=== PATIENT | female | born 1945 | race Caucasian/White ===

== ENCOUNTER 2017-04-14 09:18 | Inpatient (IN) | payer OTHER ==
--- NOTE | 2017-04-14 08:16 | CPEKG ---
Heart Rate: 59 RR Interval: 1017 P-R Interval: 152 QRSD Interval: 80 QT Interval: 432 QTC Interval: 428 P [place]: 79 QRS [place]: -45 T Wave [place]: 8 EKG Severity - ABNORMAL ECG - EKG Impression: SINUS RHYTHM EKG Impression: LEFT ANTERIOR FASCICULAR BLOCK EKG Impression: BORDERLINE R WAVE PROGRESSION, ANTERIOR LEADS Electronically Signed By: Lars Walker 14-Apr-2017 15:40:15
[2017-04-14 08:34] LABS: % IMMATURE GRANULYOCYTES 0.7 % (0.0-1.1); ABSOLUTE IMMATURE GRANULOCYTES 0.03 10^3/uL (0.00-0.10); ADD DIFF? NO; ADD MORPH? NO; ADD SCAN? NO; ATYPICAL LYMPHOCYTE FLAG 10 (0-99); FRAGMENT RBC FLAG 0 (0-99); HEMATOCRIT 40.7 % (38.0-47.0); HEMOGLOBIN 14.1 g/dL (12.6-16.3); LEFT SHIFT FLG 0 (0-99); LIPEMIA HEMOLYSIS FLAG 90 (0-99); MEAN CELL HEMOGLOBIN 30.3 pg (27.9-34.1); MEAN CELL HEMOGLOBIN CONCENTR. 34.6 g/dL (32.4-36.7); MEAN CELL VOLUME 87.3 fL (81.5-99.8); MEAN PLATELET VOLUME 9.9 fL (8.7-11.7); PLATELET CLUMPS FLAG 0 (0-99); PLATELET COUNT 210 10^3/uL (150-400); RED BLOOD CELL COUNT 4.66 10^6/uL (4.18-5.33); RED CELL DISTRIBUTION WIDTH 13.1 % (11.5-15.2)
[2017-04-14 08:45] LABS: INR 1.11 (0.83-1.16); PROTIME(PATIENT) 14.2 SEC (12.0-15.0)
[2017-04-14 08:56] LABS: ANION GAP 10 mEq/L (8-16); CALCIUM 9.6 mg/dL (8.5-10.4); CARBON DIOXIDE 22 mEq/l (22-31); CHLORIDE 104 mEq/L (97-110); CHOLESTEROL 179 mg/dL (140-220); CHOLESTEROL/HDL RATIO 2.27 RATIO (1.00-4.44); CREATININE 0.8 mg/dL (0.6-1.0); GLOMERULAR FILTRATION RATE > 60; GLUCOSE 92 mg/dL (70-100); HIGH DENSITY LIPOPROTEIN 79 mg/dL (40-85); LDL/HDL RATIO 1.14 RATIO (1.00-3.22); LOW DENSITY LIPOPROTEIN 90 mg/dL (80-100); MAGNESIUM 2.2 mg/dL (1.6-2.3); NON-HIGH DENSITY LIPOPROTEIN 100 mg/dL (90-129); SODIUM 136 mEq/L (134-144); TRIGLYCERIDE 53 mg/dL (35-135); VERY LOW DENSITY LIPOPROTEINS 10 mg/dL (8-25)
[~2017-04-14 09:18] MED LIST: ASPIRIN EC 325 MG TAB PO ONE; DIAZEPAM 5 MG TAB ONE; DIAZEPAM 5 MG TAB PO ONE; FAMOTIDINE 20 MG TAB ONE; FAMOTIDINE 20 MG TAB PO ONE; HEPARIN 10,000 UNIT/10 ML MDV ONE; IOPAMIDOL (ISOVUE-370) 150 ML BTL IV ONE; LIDOCAINE 1% 300 MG/30 ML SDV ONE; MIDAZOLAM 2 MG/2 ML VIAL ONE; NS 1,000 ML IV ONE; VERAPAMIL 5 MG/2 ML VIAL ONE; diphenhydrAMINE 25 MG CAP PO ONE; fentaNYL 100 MCG/2 ML INJ ONE
[2017-04-14] MEDS ORDERED: NALOXONE HCL 0.4 MG/ML INJ ONE (09:52)
[2017-04-14] MEDS ORDERED: ATROPINE SULFATE 1 MG/10 ML SYR IVP PRN (10:04)
[2017-04-14] MEDS ORDERED: NITROGLYCERIN 0.4 MG BTL SL PRN (10:04)
--- NOTE | 2017-04-14 10:09 | PDDXCAT ---
Diagnostic Cath Note - . Date: 04/14/17 Forensic Analyst: Aaron - Procedure Access: right wrist Procedure: left heart catheterization, coronary angiography - Materials Left Heart Cath size: 5F - Findings-Left Heart Catheterization LM: Unobstructed LAD: Unobstructed LCX: Dominant: Unobstructed RCA: Non dominant Complications: With injection of the right coronary torsade de Pointe. Closure method: TR Band Assessment: 1. Angiographically normal coronary arteries. Plan: Aortic valve replacement Intervention: With injection of the right coronary the patient developed torsade de Pointe. Patient was defibrillated at 200 w seconds with persistence of torsade de Pointe. Brief CPR was performed. A 2nd shock was delivered at 300 w seconds with pentecostal of sinus rhythm. Patient did receive a single dose of atropine 1 mg. Postprocedure patient was awake and alert moving all extremities. Conclusions: Cardiac catheterization complicated by torsade de Pointe with right coronary injection. Patient Problems: Problems Problem Status Onset Aortic stenosis due to bicuspid aortic valve Acute
[2017-04-14 11:47] LABS: HEMOGLOBIN A1C 5.6 % (4.0-6.0)
--- NOTE | 2017-04-14 20:02 | PDGENHP ---
History and Physical - Chief Complaint preop AVR - History of Present Illness 72 yo female with a BAV, severe , mildly dilated ascending aorta, and exertional chest pains admitted in advance of scheduled AVR to complete risk stratification and verify candidacy for a minimally invasive approach. Since last seen in clinic in Dec 2016, she is now getting more prominent exertional chest pains and arm tingling, but has not had a decline in functional capacity or an increase in breathlessness. Weight has been stable. No edema, palpitations or presyncope. History Information - Allergies/Home Medication List Allergies/Adverse Reactions: No Known Allergies Allergy (Unverified 10/02/14 14:22) Home Medications: Atenolol [Tenormin 25 mg (*)] 12.5 mg PO DAILY 04/02/17 [Last Taken 04/14/17] Cholecalciferol Vit D3 [Vitamin D3 (*)] 1,000 units PO DAILY 04/02/17 [Last Taken Unknown] Cyanocobalamin [Vitamin B12 (*)] 1,000 mcg PO DAILY 04/02/17 [Last Taken Unknown ] Estradiol [VAGIFEM] 10 mcg VG Q3D 04/02/17 [Last Taken 04/14/17] Herbals/Supplements -Info Only 1 ea PO DAILY 04/02/17 [Last Taken Unknown] valACYclovir [Valtrex (*)] 500 - 1,000 mg PO DAILY PRN 04/02/17 [Last Taken 500MG] I have personally reviewed and updated: family history (negative for BAV, aneurysms, aortic dissection or sudden ), medical history (negative for HTN ), social history, surgical history - Past Medical History hearing deficit (bilateral hearing aids) Additional medical history: Under surveillance for BAV/ and dilated ascending aorta x 15yrs. IBS with constipation. Depression with anxiety. Fibromyalgia. Oral herpes simplex. Vit B12 deficiency. PVCs, controlled on low dose Atenolol - Surgical History Reports: no pertinent surgical hx - Family History Positive for: non-pertinent - Social History Smoking Status: Never smoked Review of Systems Constitutional: Reports: no symptoms EENMT: Reports: no symptoms Cardiac: Reports: no symptoms (with routine ADLs) Respiratory: Reports: no symptoms (with routine ADLs) Gastrointestinal: Reports: constipation Genitourinary: Reports: no symptoms Muscolosketal: Reports: no symptoms Skin: Reports: no symptoms Neurological: Reports: no symptoms Hematologic/Lymphatic: Reports: no symptoms Physical Exam Temp Pulse Resp BP Pulse Ox 36.7 C 69 13 98/65 L 97 04/14/17 13:41 04/14/17 15:00 04/14/17 15:00 04/14/17 15:00 04/14/17 15:00 Constitutional: no apparent distress, other Eyes: anicteric sclera, other (PER) Ears, Nose, Mouth, Throat: moist mucous membranes, other (Excellent dentition) Cardiovascular: regular rate and rhythym, systolic murmur (III/, loudest USB) , bradycardia Peripheral Pulses: 3+: dorsalis-pedis (R), dorsalis-pedis (L) Respiratory: no respiratory distress, clear to auscultation Gastrointestinal: normoactive bowel sounds, soft, non-tender abdomen Skin: warm, normal color, no rashes or abrasions Musculoskeletal: other (no deformity, edema or asymmetric tone; right wrist splint intact, coban wrap over cath site) Psychiatric: anxious Lab Data & Imaging Review 04/14/17 08:25 04/15/17 03:30 WBC 4.21 10^3/uL (3.80-9.50) 04/14/17 08:25 RBC 4.66 10^6/uL (4.18-5.33) 04/14/17 08:25 Hgb 14.1 g/dL (12.6-16.3) 04/14/17 08:25 Hct 40.7 % (38.0-47.0) 04/14/17 08:25 MCV 87.3 fL (81.5-99.8) 04/14/17 08:25 MCH 30.3 pg (27.9-34.1) 04/14/17 08:25 MCHC 34.6 g/dL (32.4-36.7) 04/14/17 08:25 RDW 13.1 % (11.5-15.2) 04/14/17 08:25 Plt Count 210 10^3/uL (150-400) 04/14/17 08:25 MPV 9.9 fL (8.7-11.7) 04/14/17 08:25 Neut % (Auto) 77.2 % (39.3-74.2) H 04/14/17 08:25 Lymph % (Auto) 11.4 % (15.0-45.0) L 04/14/17 08:25 Walker % (Auto) 8.8 % (4.5-13.0) 04/14/17 08:25 Eos % (Auto) 1.2 % (0.6-7.6) 04/14/17 08:25 Baso % (Auto) 0.7 % (0.3-1.7) 04/14/17 08:25 Nucleat RBC Rel Count 0.0 % (0.0-0.2) 04/14/17 08:25 Absolute Neuts (auto) 3.25 10^3/uL (1.70-6.50) 04/14/17 08:25 Absolute Lymphs (auto) 0.48 10^3/uL (1.00-3.00) L 04/14/17 08:25 Absolute Monos (auto) 0.37 10^3/uL (0.30-0.80) 04/14/17 08:25 Absolute Eos (auto) 0.05 10^3/uL (0.03-0.40) 04/14/17 08:25 Absolute Basos (auto) 0.03 10^3/uL (0.02-0.10) 04/14/17 08:25 Absolute Nucleated RBC 0.00 10^3/uL (0-0.01) 04/14/17 08:25 Immature Gran % 0.7 % (0.0-1.1) 04/14/17 08:25 Immature Gran # 0.03 10^3/uL (0.00-0.10) 04/14/17 08:25 PT 14.2 SEC (12.0-15.0) 04/14/17 08:25 INR 1.11 (0.83-1.16) 04/14/17 08:25 Sodium 136 mEq/L (134-144) 04/14/17 08:25 Potassium 4.0 mEq/L (3.5-5.2) 04/14/17 08:25 Chloride 104 mEq/L (97-110) 04/14/17 08:25 Carbon Dioxide 22 mEq/l (22-31) 04/14/17 08:25 Anion Gap 10 mEq/L (8-16) 04/14/17 08:25 BUN 14 mg/dL (7-23) 04/14/17 08:25 Creatinine 0.8 mg/dL (0.6-1.0) 04/14/17 08:25 Estimated GFR > 60 04/14/17 08:25 Glucose 92 mg/dL (70-100) 04/14/17 08:25 Hemoglobin A1c 5.6 % (4.0-6.0) 04/14/17 08:25 Estim Average Glucose 114 mg/dL (68-126) 04/14/17 08:25 Calcium 9.6 mg/dL (8.5-10.4) 04/14/17 08:25 Magnesium 2.2 mg/dL (1.6-2.3) 04/14/17 08:25 Triglycerides 53 mg/dL (35-135) 04/14/17 08:25 Cholesterol 179 mg/dL (140-220) 04/14/17 08:25 Cholesterol Risk Factr 0.4 (0.2-1.0) 04/14/17 08:25 LDL Cholesterol, Calc 90 mg/dL (80-100) 04/14/17 08:25 LDL Risk Factor 0.5 (0.2-1.0) 04/14/17 08:25 VLDL Cholesterol 10 mg/dL (8-25) 04/14/17 08:25 Non-HDL Cholesterol 100 mg/dL (90-129) 04/14/17 08:25 HDL Cholesterol 79 mg/dL (40-85) 04/14/17 08:25 LDL/HDL Ratio 1.14 RATIO (1.00-3.22) 04/14/17 08:25 Cholesterol/HDL Ratio 2.27 RATIO (1.00-4.44) 04/14/17 08:25 Patient ABO/Rh A POSITIVE 04/14/17 08:25 Antibody Screen NEGATIVE 04/14/17 08:25 Imaging Review: CT chest: Nl cardiac size. 3.9 cm ascending aorta - stable dimensions since 2009. JAY granuloma. Carotid US: No hemodynamically significant disease. Antegrade flow bilateral vertebrals. LHC: left dominant glo circulation. No angiographic evidence of disease. Torsades during RCA injection req brief CPR and defibrillation. No apparent injury. Visualized and Interpreted Chest x-ray results: No Interpretation: see above/imaging review Visualized and Interpreted EKG results: Yes EKG Interpretation: Positive for: normal sinsus rhythm, other (LAFB) Assessment & Plan Assessment: Progressive aortic stenosis due to bicuspid aortic valve (Acute) Mildly dilated ascending aorta, no significant interval enlargement by serial imaging CAD excluded Preserved LV size and function Plan: Bioprosthetic AVR +/- ascending aortic replacement via partial upper sternotomy. Consents per Dr Sweet.
--- NOTE | 2017-04-14 20:42 | PDANEPAE ---
ANE History of Present Illness Aortic Stenosis ANE Past Medical History - Cardiovascular History Hx Hypertension: No Hx Arrhythmias: No Hx Chest Pain: No Hx Coronary Artery / Peripheral Vascular Disease: No Hx CHF / Valvular Disease: No Hx Palpitations: No - Pulmonary History Hx COPD: No Hx Asthma/Reactive Airway Disease: No Hx Recent Upper Respiratory Infection: No Hx Oxygen in Use at Home: No - Neurologic History Hx Cerebrovascular Accident: No Hx Seizures: No Hx Dementia: No - Endocrine History Hx Diabetes: No - Renal History Hx Renal Disorders: No - Liver History Hx Hepatic Disorders: No - Neurological & Psychiatric Hx Hx Neurological and Psychiatric Disorders: Yes - Cancer History Hx Cancer: Yes - Congenital Disorder History Hx Congenital Disorders: Yes - GI History Hx Gastrointestinal Disorders: Yes - Chronic Pain History Chronic Pain: No ANE Review of Systems - Exercise capacity METS (RN): 6 METS ANE Patient History - Allergies Allergies/Adverse Reactions: No Known Allergies Allergy (Unverified 10/02/14 14:22) - Home Medications Home Medications: Atenolol [Tenormin 25 mg (*)] 12.5 mg PO DAILY 04/02/17 [Last Taken 04/14/17] Cholecalciferol Vit D3 [Vitamin D3 (*)] 1,000 units PO DAILY 04/02/17 [Last Taken Unknown] Cyanocobalamin [Vitamin B12 (*)] 1,000 mcg PO DAILY 04/02/17 [Last Taken Unknown ] Estradiol [VAGIFEM] 10 mcg VG Q3D 04/02/17 [Last Taken 04/14/17] Herbals/Supplements -Info Only 1 ea PO DAILY 04/02/17 [Last Taken Unknown] valACYclovir [Valtrex (*)] 500 - 1,000 mg PO DAILY PRN 04/02/17 [Last Taken 500MG] - Smoking Hx Smoking Status: Never smoked - Family Anes Hx Family Hx Anesthesia Complications: none ANE Labs/Vital Signs - Labs Result Diagrams: 04/14/17 08:25 04/14/17 08:25 - Vital Signs Blood Pressure: 123/77 Heart Rate: 56 Respiratory Rate: 16 O2 Sat (%): 94 Height: 167.64 cm Weight: 49.895 kg ANE Physical Exam - Airway Mallampati Score: Class 2 Mouth exam: normal dental/mouth exam - Pulmonary Pulmonary: no respiratory distress - Cardiovascular Cardiovascular: regular rate and rhythym - ASA Status ASA Status: III ANE Anesthesia Plan Anesthesia Plan: general endotracheal anesthesia Lines/Monitors: arterial line, central line, DILIP
[2017-04-14] MEDS ORDERED: CHLORHEXIDINE GLUC HIBICLENS 118 ML BTL TP SCH (21:00)
[2017-04-14] MEDS: MUPIROCIN 2% 22 GM OINT NS SCH (22:29)
[2017-04-15 04:48] LABS: ANION GAP 7 mEq/L (8-16); CALCIUM 9.1 mg/dL (8.5-10.4); CARBON DIOXIDE 24 mEq/l (22-31); CHLORIDE 105 mEq/L (97-110); CREATININE 0.8 mg/dL (0.6-1.0); GLOMERULAR FILTRATION RATE > 60; GLUCOSE 88 mg/dL (70-100); POTASSIUM 4.2 mEq/L (3.5-5.2); SODIUM 136 mEq/L (134-144)
[2017-04-15] MEDS ORDERED: SODIUM BICARBONATE 20 MEQ, LIDOCAINE 1% 10 ML in NORMOSOL-R 1,000 ML MISC ONE (06:00)
[2017-04-15] MEDS ORDERED: niCARdipine/NACL 200 ML IV ONE (06:00)
[2017-04-15] MEDS ORDERED: CITRATE DEXTROSE SOLN 500 ML BAG MISC ONE (06:00)
[2017-04-15] MEDS ORDERED: AMINOCAPROIC ACID 5 GM/20 ML VIAL IV ONE (06:00)
[2017-04-15] MEDS ORDERED: INSULIN REGULAR HUMAN 100 UNIT in NS 100 ML IV ONE (06:00)
[2017-04-15] MEDS ORDERED: MANNITOL 25% 12.5 GM/50 ML VIAL IV ONE (06:00)
[2017-04-15] MEDS ORDERED: PHENYLEPHRINE HCL 50 MG in NS 250 ML IV ONE (06:00)
[2017-04-15] MEDS ORDERED: NOREPINEPHRINE BITARTRATE 16 MG in NS 250 ML IV ONE (06:00)
[2017-04-15] MEDS ORDERED: ceFAZolin 2 GM/DEXTROSE 100 ML IV ONE (06:00)
[2017-04-15] MEDS ORDERED: AMINOCAPROIC ACID 5 GM/20 ML VIAL ONE (06:32)
[2017-04-15] MEDS ORDERED: NA BICARBONATE 50 MEQ/50 ML VIAL ONE (06:32)
[2017-04-15] MEDS ORDERED: MILRINONE/DEXTROSE/100 ML BAG IV ONE (06:32)
[2017-04-15] MEDS ORDERED: POTASSIUM Cl (KCl) 20 MEQ/50 ML BAG IV ONE (06:32)
[2017-04-15] MEDS ORDERED: CITRATE DEXTROSE SOLN 500 ML BAG ONE (06:32)
[2017-04-15] MEDS ORDERED: PROTAMINE SULFATE 50 MG/5 ML VIAL IVP ONE (06:32)
[2017-04-15] MEDS ORDERED: niCARdipine/NACL/200 ML BAG IV ONE (06:32)
[2017-04-15] MEDS ORDERED: ALBUMIN 5% 250 ML BOTTLE IV ONE ×2 (06:32→12:22)
[2017-04-15] MEDS ORDERED: DOPamine/DEXTROSE/250 ML BAG IV ONE (06:32)
[2017-04-15] MEDS ORDERED: LIDOCAINE 2% 100 MG/5 ML SYR ONE (06:32)
[2017-04-15] MEDS ORDERED: CALCIUM CHLORIDE 1 GM/10 ML INJ ONE (06:32)
[2017-04-15] MEDS ORDERED: ceFAZolin 1 GM VIAL ONE (06:33)
[2017-04-15] MEDS ORDERED: HEPARIN 10,000 UNIT/10 ML MDV ONE (06:33)
[2017-04-15] MEDS ORDERED: AMIODARONE HCL 150 MG/3 ML VIAL ONE (06:33)
[2017-04-15] MEDS ORDERED: MAGNESIUM SULFATE 1 GM/2 ML VIAL ONE (06:33)
[2017-04-15] MEDS ORDERED: methylPREDNISolone SOD SUCC 1 GM/8 ML VIAL ONE (06:33)
[2017-04-15] MEDS ORDERED: ADENOSINE 6 MG/2 ML VIAL ONE (06:33)
[2017-04-15] MEDS ORDERED: LR 1,000 ML IV ONE (07:20)
[2017-04-15] MEDS: MUPIROCIN 2% 22 GM OINT NS SCH ×2 (07:24→21:11)
--- NOTE | 2017-04-15 07:31 | PDHPUP ---
History & Physical Update H&P update statement: This history and physical update is based on an assessment of the patient which was completed after admission or registration (within 24 hours), but prior to the surgery/procedure. H&P update: H&P reviewed & patient examined, no change in patient's condition since H&P completed
[2017-04-15] MEDS ORDERED: MIDAZOLAM 2 MG/2 ML VIAL IVP ONE (07:45)
[2017-04-15] MEDS ORDERED: PHENYLEPHRINE 10 MG/ML SDV ONE (07:50)
[2017-04-15] MEDS ORDERED: ROCURONIUM 100 MG/10 ML VIAL ONE (07:50)
[2017-04-15] MEDS ORDERED: LABETALOL HCL 5 MG/ML 20 ML MDV ONE (07:51)
[2017-04-15] MEDS ORDERED: LIDOCAINE 2% 5 ML SDV ONE (07:51)
[2017-04-15] MEDS ORDERED: fentaNYL 100 MCG/2 ML INJ ONE ×5 (07:58)
[2017-04-15] MEDS ORDERED: PROPOFOL 200 MG/20 ML VIAL ONE (07:58)
[2017-04-15] MEDS ORDERED: epHEDrine SULFATE 10 MG/ML SYR ONE ×2 (09:09→11:33)
[2017-04-15] MEDS ORDERED: SUGAMMADEX SODIUM 200 MG/2 ML VIAL IVP ONE (09:58)
[2017-04-15] MEDS ORDERED: BUPIVACAINE/EPI 0.25% 30 ML SDV ONE (11:28)
[2017-04-15] MEDS ORDERED: POLYETHYLENE GLYCOL 3350 17 GM PKT PO PRN (12:21)
[2017-04-15] MEDS ORDERED: MAGNESIUM SULF 2 GM/WATER 50 ML IV ONE (12:21)
[2017-04-15] MEDS ORDERED: LACTULOSE 20 GM/30 ML UDCUP PO PRN (12:21)
[2017-04-15] MEDS ORDERED: ONDANSETRON DISINTEGRATING 4 MG TAB PO PRN (12:21)
[2017-04-15] MEDS ORDERED: METOCLOPRAMIDE 10 MG/2 ML VIAL IVP PRN (12:21)
[2017-04-15] MEDS ORDERED: ACETAMINOPHEN 325 MG TAB PO PRN (12:21)
[2017-04-15] MEDS ORDERED: PANTOPRAZOLE SODIUM 40 MG in NS 100 ML IV ONE (12:21)
[2017-04-15] MEDS ORDERED: D50W 25 GM/50 ML SYR IVP PRN (12:21)
[2017-04-15] MEDS ORDERED: SODIUM CL NASAL 45 ML BTL EACHNARE PRN (12:21)
[2017-04-15] MEDS ORDERED: ACETAMINOPHEN 650 MG SUPP PR PRN (12:21)
[2017-04-15] MEDS ORDERED: MEPERIDINE 25 MG/ML SYR IVP PRN (12:21)
[2017-04-15] MEDS ORDERED: MAGNESIUM SULF 2 GM/WATER 50 ML BAG IV ONE (12:21)
[2017-04-15] MEDS ORDERED: HYDROCODONE/APAP 5/325 TAB PO PRN (12:21)
[2017-04-15] MEDS ORDERED: fentaNYL 100 MCG/2 ML INJ IVP PRN (12:21)
[2017-04-15] MEDS ORDERED: MAGNESIUM HYDROXIDE 30 ML UDCUP PO PRN (12:21)
[2017-04-15] MEDS ORDERED: CEPACOL LOZENGE PO PRN (12:21)
[2017-04-15] MEDS ORDERED: BISACODYL 10 MG SUPP PR PRN (12:21)
[2017-04-15] MEDS ORDERED: INSULIN REGULAR HUMAN 100 UNIT in NS 100 ML IV SCH (12:30)
[2017-04-15] MEDS ORDERED: NS 1,000 ML IV SCH (12:30)
[2017-04-15] MEDS ORDERED: NALOXONE HCL 0.4 MG/ML INJ IVP PRN (12:37)
--- NOTE | 2017-04-15 12:39 | POSTANESTH ---
Post Anesthetic Evaluation Cardiovascular Status: Normal, Stable Respiratory Status: Normal, Stable Level of Consciousness/Mental Status: Can Participate in Eval Pain Control: Adequate, Prn Tx Ordered Nausea/Vomiting Control: Adequate, Prn Tx Ordered Complications Possibly Related to Anesthesia: None Noted
[2017-04-15] MEDS: ALBUMIN 5% 250 ML IV PRN ×4 (13:00→19:23)
--- NOTE | 2017-04-15 13:03 | CPEKG ---
Heart Rate: 56 RR Interval: 1071 P-R Interval: 188 QRSD Interval: 88 QT Interval: 512 QTC Interval: 495 P [place]: 76 QRS [place]: -68 T Wave [place]: 78 EKG Severity - ABNORMAL ECG - EKG Impression: SINUS RHYTHM EKG Impression: LEFT ANTERIOR FASCICULAR BLOCK EKG Impression: CONSIDER ANTEROSEPTAL INFARCT EKG Impression: NONSPECIFIC T ABNORMALITIES, LATERAL LEADS EKG Impression: BORDERLINE PROLONGED QT INTERVAL Electronically Signed By: Lars Walker 15-Apr-2017 16:52:24
[2017-04-15 14:05] LABS: BASE EXCESS -8.2 mEq/L (-2.5-2.5); BICARBONATE 18 mEq/L (22-26); MEASURED OXYGEN SATURATION 99 % (92-95); TCO2 20 mEq/L (23-27)
[2017-04-15 14:06] LABS: PCO2 39 mmHg (34-38); PO2 158 mmHg (65-75)
[2017-04-15] MEDS: KETOROLAC 15 MG/1 ML SDV IVP SCH ×2 (14:09→18:23)
[2017-04-15] MEDS: ceFAZolin 2 GM/DEXTROSE 100 ML IV SCH ×2 (14:09→22:06)
[2017-04-15] MEDS ORDERED: NOREPINEPHRINE/NS 4 MG/500 ML BAG IV ONE (14:39)
[2017-04-15] MEDS: POTASSIUM Cl (KCl) 50 ML IV PRN ×3 (15:29→20:09)
[2017-04-15] MEDS ORDERED: NOREPINEPHRINE/NS 500 ML IV SCH (15:30)
[2017-04-15] MEDS: ONDANSETRON 4 MG/2 ML VIAL IVP PRN ×2 (16:18→20:31)
--- NOTE | 2017-04-15 16:46 | POSTOPPROG ---
Post Op Note Date of Operation: 04/15/17 Surgeon: Oli Sweet Research Spec: Karrie Agarwal Anesthesiologist: Josh Anesthesia: GET(General Endotracheal) Pre-op Diagnosis: , asc aneurysm Procedure: MICS AVR#21magna, asc replacement #26 graft Inf/Abcess present in the surg proc area at time of surgery?: No EBL: 50-100 Drains: Other (1 ana)
[2017-04-15] MEDS ORDERED: SODIUM BICARBONATE 50 MEQ/50 ML SYR ONE (20:39)
[2017-04-15 20:42] LABS: CALCULATED OXYGEN SATURATION 96 % (92-95); O2 CONCENTRATIION 2 % (0-100)
[2017-04-15] MEDS ORDERED: SODIUM BICARBONATE 50 MEQ/50 ML SYR IVP ONE (21:00)
[2017-04-15 22:27] LABS: CALCULATED OXYGEN SATURATION 97 % (92-95); O2 CONCENTRATIION 2 % (0-100)
[2017-04-15] MEDS ORDERED: NA BICARBONATE 50 MEQ/50 ML VIAL IV ONE (22:45)
[2017-04-16] MEDS: KETOROLAC 15 MG/1 ML SDV IVP SCH ×4 (00:04→17:58)
[2017-04-16 02:17] LABS: CALCULATED OXYGEN SATURATION 95 % (92-95); O2 CONCENTRATIION 2 % (0-100)
[2017-04-16 03:59] LABS: % IMMATURE GRANULYOCYTES 0.3 % (0.0-1.1); ABSOLUTE IMMATURE GRANULOCYTES 0.03 10^3/uL (0.00-0.10); ADD DIFF? NO; ADD MORPH? NO; ADD SCAN? NO; ATYPICAL LYMPHOCYTE FLAG 0 (0-99); FRAGMENT RBC FLAG 0 (0-99); HEMATOCRIT 32.5 % (38.0-47.0); HEMOGLOBIN 11.4 g/dL (12.6-16.3); LEFT SHIFT FLG 10 (0-99); LIPEMIA HEMOLYSIS FLAG 90 (0-99); MEAN CELL HEMOGLOBIN 30.2 pg (27.9-34.1); MEAN CELL HEMOGLOBIN CONCENTR. 35.1 g/dL (32.4-36.7); MEAN CELL VOLUME 86.2 fL (81.5-99.8); MEAN PLATELET VOLUME 10.2 fL (8.7-11.7); PLATELET CLUMPS FLAG 10 (0-99); RED BLOOD CELL COUNT 3.77 10^6/uL (4.18-5.33); RED CELL DISTRIBUTION WIDTH 14.4 % (11.5-15.2)
[2017-04-16 04:15] LABS: ANION GAP 9 mEq/L (8-16); CALCIUM 7.9 mg/dL (8.5-10.4); CARBON DIOXIDE 22 mEq/l (22-31); CHLORIDE 113 mEq/L (97-110); CREATININE 0.7 mg/dL (0.6-1.0); GLOMERULAR FILTRATION RATE > 60; GLUCOSE 86 mg/dL (70-100); POTASSIUM 4.5 mEq/L (3.5-5.2); SODIUM 144 mEq/L (134-144)
[2017-04-16 04:16] LABS: PLATELET COUNT 78 10^3/uL (150-400)
[2017-04-16] MEDS ORDERED: HEPARIN 5,000 UNIT/0.5 ML SYR SC SCH (06:00)
[2017-04-16] MEDS: ceFAZolin 2 GM/DEXTROSE 100 ML IV SCH ×3 (06:36→21:48)
--- NOTE | 2017-04-16 07:10 | SOAPPROG ---
SOAP Progress Note Assessment/Plan: Assessment: POD#1 MICS AVR#21 Magna bioprosthesis & ascending aortic replacement #26 hemashield graft; partial upper sternotomy w peripheral and central CPB; primary repair of rt CFV after decannulation. BAV w sx severe and dilated asc aorta - s/p minimally invasive tissue AVR and asc aortic replacement with dacron interposition graft. Extubated in the OR. Stable early postop course. No tachycardia, backup pacing, significant volume overload, or prolonged vasoactive support. Antithrombotic prophylaxis with ASA alone. AF prophylaxis with BB as tolerated. Acute expected blood loss anemia - Stable. No blood or blood products transfused. Care w VTE prophylaxis while plt count depressed. Plan: Routine POD#1 orders re lines, drains, orals and mobility. Colloid prn CVP < 7. Tx to PCU. 04/16/17 07:06 Subjective: Slept ok. Tolerating ice chips. Thirsty but nauseous after drinking water this morning. No dizziness OOB. Satisfactory analgesia. Objective: Vital Signs Temp Pulse Resp BP Pulse Ox 37.3 C 70 22 H 113/53 L 97 04/16/17 06:00 04/16/17 06:00 04/16/17 06:00 04/16/17 06:00 04/16/17 06:00 Laboratory Results 04/16/17 03:50 04/16/17 03:50 04/15/17 04/16/17 04/17/17 05:59 05:59 05:59 Intake Total 500 3550 Output Total 1645 Balance 500 1905 PT 14.2 SEC (12.0-15.0) 04/14/17 08:25 INR 1.11 (0.83-1.16) 04/14/17 08:25 1-2 mcg levo yest pm and overnoc for BP support. No gtts since 0600. Rare PVC, no tachy/jodi arrhythmias. Minimal suppl O2 req. Adequate UOP. Modest CTOP. CXR-> No pulm vasc congestion, small left pl eff Labs as expected. Physical Exam - Physical Exam General Appearance: alert, no apparent distress Respiratory: lungs clear (grossly), other (Lei to bulb suction, serosang drainage) Cardiac/Chest: regular rate, rhythm, other (Sternotomy and Rt groin CDI.) Abdomen: normal bowel sounds, non-tender, soft Skin: warm/dry Extremities: other (no visible edema) ICD10 Worksheet Patient Problems: Problems Problem Status Onset Acute blood loss anemia Acute S/P aortic valve replacement with bioprosthetic valve Acute ~04/15/17 S/P ascending aortic replacement Acute ~04/15/17 Aortic stenosis due to bicuspid aortic valve Chronic Ascending aorta dilatation Chronic PVCs (premature ventricular contractions) Chronic
[2017-04-16] MEDS: SENNOSIDES/DOCUSATE SODIUM TAB PO SCH ×2 (08:25→20:42)
[2017-04-16] MEDS: MUPIROCIN 2% 22 GM OINT NS SCH ×2 (08:26→20:48)
[2017-04-16] MEDS: PANTOPRAZOLE SODIUM 40 MG TAB PO SCH (08:26)
[2017-04-16] MEDS: ASPIRIN EC 81 MG TAB PO SCH (08:40)
[2017-04-16] MEDS ORDERED: ASPIRIN 81 MG CHEWABLE TAB PO SCH (09:00)
--- NOTE | 2017-04-16 14:13 | GOP ---
[f rep st] OPERATIVE REPORT DATE OF OPERATION: 04/15/2017 SURGEON: Oli Sweet DO MICROBIAL SPECIALIST: Stefano. ANESTHESIA: Moreno. PREOPERATIVE DIAGNOSIS: Aortic stenosis and ascending aortic enlargement. POSTOPERATIVE DIAGNOSIS: Aortic stenosis and ascending aortic enlargement. PROCEDURE PERFORMED: 1. Minimally invasive partial sternotomy aortic valve replacement with a #21 Magna valve. 2. Replacement of ascending aorta with a Hemashield graft size 26. FINDINGS: Patient was noted to have a 4 cm to 4.2 cm thin-walled ascending aorta on CAT scan with a history of bicuspid aortic valve disease with critical aortic stenosis. She was consented for surg tasha, brought to the operating room, intubated, monitoring lines were placed. She was prepped and dr aped in sterile classical manner. A partial upper sternotomy was performed through a 3-inch incisio n at the upper sternum. The sternum was transected at the 4th intercostal space. A retractor was p laced. Heparinization was performed. She was cannulated in the transverse arch and the right commo n femoral vein with a small incision placed over it with echo guidance. Cardiopulmonary bypass was begun. A cross-clamp was applied to the aorta with our antegrade cardioplegia administered with com plete arrest. We then excised a very thin-walled ascending aorta from the sinotubular junction to t he innominate artery. We then excised the heavily calcified, true bicuspid valve with debridement o f the anulus with CO2 infused. Chamber was copiously irrigated. Intermittent antegrade cardioplegi a was administered down the coronaries every 10 minutes. I then placed a 21 mm Magna valve in a sup ra-annular position with interrupted 2-0 Tycron pledgeted mattress sutures. Rewarming was begun whi le the anastomosis distally and proximally was performed with a 26 Hemashield graft beveled. The pa tient was placed in Trendelenburg. The cross-clamp was removed with suction on the ascending aortic vent. The patient had a PA vent placed before which was discontinued. We then kept the patient in Trendelenburg until no further air was identified. She was easily weaned from bypass. The heparin was reversed with protamine. A transesophageal echo revealed good LV function with no valvular ins ufficiency. A single drain was placed. The sternum was reapproximated. Dressings were applied. P atient was returned extubated to the ICU in stable condition. DESCRIPTION OF PROCEDURE: /[id number]/MODL
[2017-04-16] MEDS: ONDANSETRON 4 MG/2 ML VIAL IVP PRN (14:17)
[2017-04-16] MEDS: METOPROLOL TARTRATE 25 MG TAB PO SCH (20:43)
[2017-04-17 06:12] LABS: % IMMATURE GRANULYOCYTES 0.6 % (0.0-1.1); ABSOLUTE IMMATURE GRANULOCYTES 0.07 10^3/uL (0.00-0.10); ADD DIFF? NO; ADD MORPH? NO; ADD SCAN? NO; ATYPICAL LYMPHOCYTE FLAG 0 (0-99); FRAGMENT RBC FLAG 10 (0-99); HEMATOCRIT 29.8 % (38.0-47.0); HEMOGLOBIN 10.3 g/dL (12.6-16.3); LEFT SHIFT FLG 0 (0-99); LIPEMIA HEMOLYSIS FLAG 90 (0-99); MEAN CELL HEMOGLOBIN 30.4 pg (27.9-34.1); MEAN CELL HEMOGLOBIN CONCENTR. 34.6 g/dL (32.4-36.7); MEAN CELL VOLUME 87.9 fL (81.5-99.8); MEAN PLATELET VOLUME 10.8 fL (8.7-11.7); PLATELET CLUMPS FLAG 10 (0-99); PLATELET COUNT 76 10^3/uL (150-400); RED BLOOD CELL COUNT 3.39 10^6/uL (4.18-5.33)
[2017-04-17 06:56] LABS: ANION GAP 5 mEq/L (8-16); CALCIUM 8.8 mg/dL (8.5-10.4); CARBON DIOXIDE 26 mEq/l (22-31); CHLORIDE 104 mEq/L (97-110); CREATININE 0.7 mg/dL (0.6-1.0); GLOMERULAR FILTRATION RATE > 60; GLUCOSE 112 mg/dL (70-100); POTASSIUM 4.8 mEq/L (3.5-5.2); SODIUM 135 mEq/L (134-144)
--- NOTE | 2017-04-17 07:13 | SOAPPROG ---
SOAP Progress Note Assessment/Plan: Assessment: POD#2 MICS AVR#21 Magna bioprosthesis & ascending aortic replacement #26 hemashield graft; partial upper sternotomy w peripheral and central CPB; primary repair of rt CFV after decannulation. BAV w sx severe and dilated asc aorta - s/p minimally invasive tissue AVR and asc aortic replacement with dacron interposition graft. Extubated in the OR. Stable early postop course. No tachycardia, backup pacing, significant volume overload, or prolonged vasoactive support. Antithrombotic prophylaxis with ASA alone. AF prophylaxis with BB as tolerated. Acute expected blood loss anemia - Stable s/p 2u PRBC. Care w VTE prophylaxis while plt count depressed. Plan: Remove drain and Vwire. Restart Toradol. Tramadol prn breakthrough discomfort. Inc activity and pulm toilet. Begin gentle diuresis. Baseline postop echo tomorrow. Dispo - Anticipate home next 1-2 days. 04/17/17 07:12 Subjective: Hurts more than expected. Yet to walk much. Low grade nausea depressing appetite. Objective: Vital Signs Temp Pulse Resp BP Pulse Ox 37.7 C 77 24 H 125/71 H 94 04/17/17 04:00 04/17/17 04:00 04/17/17 04:00 04/17/17 04:00 04/17/17 04:00 Laboratory Results 04/17/17 05:55 04/17/17 05:55 04/16/17 04/17/17 04/18/17 05:59 05:59 05:59 Intake Total 3550 1640 Output Total 1645 920 Balance 1905 720 PT 14.2 SEC (12.0-15.0) 04/14/17 08:25 INR 1.11 (0.83-1.16) 04/14/17 08:25 Stable HR & rhythm. Sufficient BP to start BB last pm. Modest suppl O2 req. CTOP below removal criteria. Positive fluid balance. +3 kg overall. Labs ok. Plts yet to rebound. Physical Exam - Physical Exam General Appearance: alert, no apparent distress Respiratory: lungs clear (grossly), other (ana to bulb suction, serosang drainage) Cardiac/Chest: regular rate, rhythm, other (Sternotomy CDI) Abdomen: non-tender, soft Skin: warm/dry Extremities: other (no visible edema) ICD10 Worksheet Patient Problems: Problems Problem Status Onset Acute blood loss anemia Acute S/P aortic valve replacement with bioprosthetic valve Acute ~04/15/17 S/P ascending aortic replacement Acute ~04/15/17 Aortic stenosis due to bicuspid aortic valve Chronic Ascending aorta dilatation Chronic PVCs (premature ventricular contractions) Chronic
[2017-04-17] MEDS ORDERED: POTASSIUM CL 10 MEQ TAB PO ONE (08:00)
[2017-04-17] MEDS ORDERED: NON-FORMULARY NEW DRUG (Estradiol [Vagifem] 10 MCG) VG SCH (08:00)
[2017-04-17] MEDS ORDERED: FUROSEMIDE 20 MG/2 ML VIAL IVP ONE (08:00)
[2017-04-17] MEDS: CYANO/VITAMIN B12 1000 MCG TAB PO SCH (08:25)
[2017-04-17] MEDS: ASPIRIN EC 81 MG TAB PO SCH (08:25)
[2017-04-17] MEDS: KETOROLAC 15 MG/1 ML SDV IVP SCH ×3 (08:25→20:46)
[2017-04-17] MEDS: PANTOPRAZOLE SODIUM 40 MG TAB PO SCH (08:25)
[2017-04-17] MEDS: METOPROLOL TARTRATE 25 MG TAB PO SCH (08:25)
[2017-04-17] MEDS: CHOLECALCIFEROL VIT D3 1,000 UNITS TAB PO SCH (08:25)
[2017-04-17] MEDS: traMADol 50 MG TAB PO PRN ×2 (08:26→22:10)
[2017-04-17] MEDS: SENNOSIDES/DOCUSATE SODIUM TAB PO SCH ×2 (08:26→20:47)
[2017-04-17] MEDS ORDERED: SILVER NITRATE APPLICATOR 1 APPL TP ONE (11:15)
[2017-04-17] MEDS ORDERED: ALTEPLASE 2 MG VIAL IVP ONE (17:30)
[2017-04-17] MEDS ORDERED: METOPROLOL TARTRATE 25 MG TAB PO SCH (21:00)
[2017-04-18] MEDS: KETOROLAC 15 MG/1 ML SDV IVP SCH (03:09)
[2017-04-18 06:07] LABS: POTASSIUM 4.3 mEq/L (3.5-5.2)
[2017-04-18] MEDS ORDERED: traMADol 50 MG TAB PO PRN (07:15)
[2017-04-18] MEDS ORDERED: POTASSIUM CL 10 MEQ TAB PO ONE ×2 (07:15→15:00)
[2017-04-18] MEDS ORDERED: FUROSEMIDE 20 MG TAB PO ONE (07:15)
--- NOTE | 2017-04-18 07:48 | SOAPPROG ---
SOAP Progress Note Assessment/Plan: Assessment: POD#3 MICS AVR#21 Magna bioprosthesis & ascending aortic replacement #26 hemashield graft; partial upper sternotomy w peripheral and central CPB; primary repair of rt CFV after decannulation. BAV w sx severe and dilated asc aorta - s/p minimally invasive tissue AVR and asc aortic replacement with dacron interposition graft. Extubated in the OR. Stable early postop course. No tachycardia, backup pacing, significant volume overload, or prolonged vasoactive support. Tube and TCPW out. Antithrombotic prophylaxis with ASA alone. AF prophylaxis with BB as tolerated. Acute expected blood loss anemia - Stable s/p 2u PRBC. Care w VTE prophylaxis while plt count depressed. Plan: Switch Toradol to Ibuprofen. Cont Tramadol prn breakthrough discomfort. Switch metoprolol back to home Atenolol. Cont inc activity and pulm toilet. Intensify diuresis. Baseline postop echo today. Dispo - Anticipate home tomorrow. 04/18/17 07:45 Subjective: Feels well. Improved pain control. Tolerating light activity with relative ease. Lives in a trilevel and looking forward to some stair work today. Ready for home tomorrow. Objective: Vital Signs Temp Pulse Resp BP Pulse Ox 37.2 C 74 16 109/71 96 04/18/17 04:00 04/18/17 04:00 04/18/17 04:00 04/18/17 04:00 04/18/17 04:00 Laboratory Results 04/17/17 05:55 04/18/17 05:30 04/17/17 04/18/17 04/19/17 05:59 05:59 05:59 Intake Total 1640 1500 Output Total 920 800 Balance 720 700 PT 14.2 SEC (12.0-15.0) 04/14/17 08:25 INR 1.11 (0.83-1.16) 04/14/17 08:25 HR, rhythm and BP controlled. Min suppl O2 req. Slightly positive fluid balance. CXR-> sm bilat pl effusions. Labs ok. - Pending Discharge Pending Discharge Within 24 Hours: Yes Pending Discharge Date: 04/19/17 Pending Discharge Time: 11:00 Physical Exam - Physical Exam General Appearance: alert, no apparent distress Respiratory: decreased breath sounds (bases) Cardiac/Chest: regular rate, rhythm, other (Sternum grossly stable. Sternotomy and rt groin incision CDI) Abdomen: non-tender, soft Skin: warm/dry Extremities: swelling (trace) ICD10 Worksheet Patient Problems: Problems Problem Status Onset Acute blood loss anemia Acute S/P aortic valve replacement with bioprosthetic valve Acute ~04/15/17 S/P ascending aortic replacement Acute ~04/15/17 Aortic stenosis due to bicuspid aortic valve Chronic Ascending aorta dilatation Chronic PVCs (premature ventricular contractions) Chronic
[2017-04-18] MEDS ORDERED: IBUPROFEN 600 MG TAB PO PRN (08:00)
[2017-04-18] MEDS: ATENOLOL 25 MG TAB PO SCH (08:15)
[2017-04-18] MEDS: ASPIRIN EC 81 MG TAB PO SCH (08:15)
[2017-04-18] MEDS: CHOLECALCIFEROL VIT D3 1,000 UNITS TAB PO SCH (08:15)
[2017-04-18] MEDS: PANTOPRAZOLE SODIUM 40 MG TAB PO SCH (08:16)
[2017-04-18] MEDS: SENNOSIDES/DOCUSATE SODIUM TAB PO SCH (08:16)
[2017-04-18] MEDS: CYANO/VITAMIN B12 1000 MCG TAB PO SCH (08:16)
--- NOTE | 2017-04-18 10:59 | ECHO ---
[id number] + + [address] : : [place] [address] : : [phone] + + Adult Echocardiographic Report + --+ :Name: NATALEE VILLALOBOS LStudy Date: 04/18/2017 08:52 AM BP: 108/68 mmH g : : Hospital Admission Number: [id number] : :: 1945 Gender: Female Height: 66 in : :Age: 72 yrs Race: Weight: 116 lb : :Reason For Study: baseline postop : : BSA: 1.6 meter s2: :History: s/p asc ao repair and AVR#21 CE Magna bovine valve : + --+ MMode/2D Measurements \T\ Calculations IVSd: 0.76 cm RVDd: 2.9 cm FS: 42.4 % LVLd ap4: 7.0 cm LVPWd: 1.0 cm LVIDd: 4.1 cmEDV(Teich): 75.8 ml EDV(MOD-sp4): 92.0 ml LVIDs: 2.4 cmESV(Teich): 19.8 ml LVLs ap4: 5.7 cm EF(Teich): 73.8 % ESV(MOD-sp4): 26.0 ml EF(MOD-sp4): 71.7 % SV(MOD-sp4): 66.0 ml Normal Measurement Values: + + :LVIDd (3.5-5.7cm) IVSd (0.6-1.1cm) LVPWd (0.6-1.1cm) Aortic Root (2.0-3.7cm)Left Atrium (1.5-4.0cm): :LV Vol(d) (76-115ml) LV Vol(s) (29-48ml) Ejec Fraction (50-65%)PV Lukas (0.6- 1.2m/s) TV Lukas (0.4-1.0m/s) : :MV E Lukas (0.8-1.0m/s)MV A Lukas (0.3-1.0m/s)LVOT Lukas (0.7-1.2m/s) Asc Ao Lukas ( 0.9-1.8m/s) : + + Doppler Measurements \T\ Calculations MV E max lukas: Ao V2 max: LV V1 max: PA V2 max: 124.9 cm/sec 232.3 cm/sec 124.4 cm/sec 94.5 cm/sec MV A max lukas: Ao max PG: LV V1 max PG: PA max P.3 cm/sec 21.6 mmHg 6.2 mmHg 3.6 mmHg MV E/A: 2.4 Ao mean PG: LV V1 mean PG: MV dec time: 16.3 mmHg 2.9 mmHg 0.16 sec Ao V2 mean: LV V1 mean: 193.4 cm/sec 78.7 cm/sec Ao V2 VTI: 51.8 cm LV V1 VTI: 22.7 cm TR max lukas: 256.5 cm/sec TR max P.3 mmHg RAP systole: 15.0 mmHg RVSP(TR): 41.3 mmHg Left Ventricle The left ventricle is normal in size and function. There is mild concentric left ventricular hypertrophy. Ejection Fraction = 70%. No regional wall motion abnormalities noted. Right Ventricle The right ventricle is normal in size and function. Atria The left atrial size is normal. The right atrium is borderline dilated. A dilated inferior vena cava suggests increased right atrial pressure. The lack of respiratory variation in the inferior vena cava diameter is noted. Mitral Valve The mitral valve is normal in structure and function. There is no mitral valve stenosis. There is mild mitral regurgitation. Tricuspid Valve The tricuspid valve is normal in structure and function. There is no tricuspid stenosis. There is mild tricuspid regurgitation. Right ventricular systolic pressure is 41mmHg. Aortic Valve S/P #21 CE Magna bovine AVR. Mean/max pressure gradient across the AVR 16/22mmHg which is within normal limits for this type and size of valve. Trace aortic regurgitation. Pulmonic Valve The pulmonic valve is normal in structure and function. Trace pulmonic valvular regurgitation. Great Vessels S/P ascending aorta repair. Pericardium/Pleural trivial pericardial effusion. There is a large pleural effusion. Conclusion A two-dimensional transthoracic echocardiogram with M-mode and Doppler was performed. The left ventricle is normal in size and function. There is mild concentric left ventricular hypertrophy. Ejection Fraction = 70%. Normal wall motion. The right atrium is borderline dilated. A dilated inferior vena cava suggests increased right atrial pressure. Normal appearing mitral and tricuspid valves. There is mild mitral regurgitation. There is mild tricuspid regurgitation. Right ventricular systolic pressure is 41mmHg. S/P #21 CE Magna bovine AVR. Mean/max pressure gradient across the AVR 16/22mmHg which is within normal limits for this type and size of valve. Trace aortic regurgitation. Trace pulmonic valvular regurgitation. S/P ascending aorta repair with normal dimensions. Trivial pericardial effusion. There is a large pleural effusion. Final Reading Physician: Macarena Guy signed on 04/18/2017 10:58 AM Ordering Physician: Muriel Agarwal Performed By: Liza Beatty
[2017-04-18] MEDS ORDERED: FUROSEMIDE 40 MG TAB PO ONE (15:00)
[2017-04-18] MEDS ORDERED: SENNOSIDES/DOCUSATE SODIUM TAB PO PRN (21:00)
[2017-04-19 05:35] LABS: HEMATOCRIT 26.1 % (38.0-47.0); HEMOGLOBIN 9.1 g/dL (12.6-16.3); MEAN CELL HEMOGLOBIN 30.7 pg (27.9-34.1); MEAN CELL HEMOGLOBIN CONCENTR. 34.9 g/dL (32.4-36.7); MEAN CELL VOLUME 88.2 fL (81.5-99.8); RED BLOOD CELL COUNT 2.96 10^6/uL (4.18-5.33); RED CELL DISTRIBUTION WIDTH 13.8 % (11.5-15.2)
[2017-04-19 05:48] LABS: ANION GAP 5 mEq/L (8-16); CALCIUM 8.6 mg/dL (8.5-10.4); CARBON DIOXIDE 28 mEq/l (22-31); CHLORIDE 100 mEq/L (97-110); CREATININE 0.7 mg/dL (0.6-1.0); GLOMERULAR FILTRATION RATE > 60; GLUCOSE 84 mg/dL (70-100); SODIUM 133 mEq/L (134-144)
[2017-04-19 07:42] VITALS: BP 125/76; PULSE 84; RESP 20; TEMP 97.6
[2017-04-19] MEDS: ATENOLOL 25 MG TAB PO SCH (08:27)
[2017-04-19] MEDS: PANTOPRAZOLE SODIUM 40 MG TAB PO SCH (08:27)
[2017-04-19] MEDS: CYANO/VITAMIN B12 1000 MCG TAB PO SCH (08:27)
[2017-04-19] MEDS: CHOLECALCIFEROL VIT D3 1,000 UNITS TAB PO SCH (08:27)
[2017-04-19] MEDS: ASPIRIN EC 81 MG TAB PO SCH (08:28)
[2017-04-19] MEDS ORDERED: FERROUS SULFATE 325 MG TAB PO SCH (09:00)
[2017-04-19] MEDS ORDERED: POTASSIUM CL 20 MEQ TAB PO ONE ×2 (09:00→12:00)
[2017-04-19] MEDS ORDERED: FUROSEMIDE 40 MG TAB PO ONE ×2 (09:00→12:00)
[2017-04-19 09:35] VITALS: O2SAT 91
--- NOTE | 2017-04-19 12:24 | PDDCSUM ---
Discharge Summary Discharge Summary: DATE OF ADMISSION: 04/14/17 DATE OF DISCHARGE: 04/19/17 DISPOSITION: Home, self-care PRINCIPAL ADMISSION DIAGNOSES: 1. Symptomatic severe aortic valve stenosis 2. Dilated ascending aorta PRINCIPAL DISCHARGE DIAGNOSES: 1. Coronary artery disease excluded 2. Mild carotid atherosclerosis 3. Status post minimally invasive aortic valve replacement with a bioprosthesis 4. Status post ascending aortic replacement with a dacron interposition graft 5. Acute expected blood loss anemia HISTORY OF PRESENT ILLNESS: 72 yo female with a BAV, severe , a dilated ascending aorta, and exertional chest pains, admitted in advance of scheduled AVR to complete risk stratification and verify candidacy for a minimally invasive approach. Asymptomatic with routine ADLs. No associated weight gain, edema, orthopnea, arrhythmias, or presyncope. PERTINENT PAST MEDICAL HISTORY: Hearing deficit (bilateral hearing aids), IBS with constipation, depression with anxiety, PVCs (controlled on Atenolol), seasonal allergies with postnasal drip and cough, oral herpes simplex MEDICATIONS ON ADMISSION: Valtrex 500mg 1-2 tabs daily prn herpetic cold sores, Vagifem 10mcg VG q3 days, Vitamin B12 1,000 mcg daily, Atenolol 12.5 mg daily, Herbal supplement once daily ALLERGIES/SENSITIVITIES: NKDA CONSULTANTS: none PROCEDURES/IMAGIN/13 (Aaron): Left heart catheterization with selective coronary angiography. Access via rt radial artery. Findings: Left dominant coronary system. No angiographic evidence disease. 04/14 Carotid US: Mild plaquing, no hemodynamically significant stenosis. Antegrade vertebral flow. 04/[address]: 3.9 cm asc aorta (7.2 by [facility] relative size index). 04/15 (Micki): Minimally invasive aortic valve replacement with a 21 mm Jones Magna bovine pericardial bioprosthesis. Ascending aortic replacement with a 26 mm Hemashield graft. Access via partial upper inverse T sternotomy w peripheral and central CPB. Primary repair of rt CFV after decannulation. 04/18 (White): Transthoracic echocardiogram: Nl BiV size/systolic fx. Nl bioprosthetic valve fx. No paravalvular leaks. ABBREVIATED HOSPITAL COURSE BY ACTIVE PROBLEM LIST: 1. BAV w sx severe and significant dilatation of the asc aorta by relative risk sizing system - s/p minimally invasive tissue AVR and asc aortic replacement with a dacron interposition graft. Extubated in the OR. Stable early postop course. No dysrhythmias or significant volume overload. Antithrombotic prophylaxis with ASA alone. AF prophylaxis with BB as tolerated. 2. Acute expected blood loss anemia - Stable s/p 2u PRBC. Started on a 2 week course of iron supplementation. DISCHARGE CLINICAL INFORMATION: Sternum grossly stable. Sternotomy and rt groin cut down site CDI, sutured, + Dermabond. HR 70s-80s. SBP 110s-120s. SpO2 91% RA. Wt 2.5kg above admission at 47.8 kilos. WBC 5, Hgb 9.1, HCT 26.1, Plt 108, Na 133, K 4, Cr 0.7. CXR: small bilateral pleural effusions. DISCHARGE MEDICATIONS: As on admission with the following adjustments: Increase Atenolol to 25 mg daily. NEW prescriptions: 1. Ferrous sulfate 325 mg daily x 2 weeks. 2. Tramadol 50 mg one half to two tabs q 6-8 hrs prn incisional discomfort. OTC: ASA 81 mg daily. FOLLOW UP APPOINTMENTS: 1. CV surgery: with Dr Sweet at [facility] on 04/28 at 1:15pm. 2. Cardiology: with Dr Walker at [facility] within 4-6 weeks. Appointment to be established during surgical visit. FOLLOW UP TESTING: CXR prior to surgical appointment.
== END 2017-04-19 12:05 | disposition home or self-care (01) | DRG 217 ==
LOC: FCATH 09:18 → F2W 10:21 → F2N 04-15 07:08 → EDSTATUS 04-15 08:15 → OBSVTOIN 04-15 12:30 → F2N 04-15 12:30 → F2W 04-16 16:40
PROVIDERS: ADMIT Thoracic Surgery (Cardiothoracic Vascular Surgery); ATTEND Thoracic Surgery (Cardiothoracic Vascular Surgery)
PROC: B2111ZZ Fluoroscopy of Multiple Coronary Arteries using Low Osmolar Contrast (ICD-10-PCS; 2017-04-14)
PROC: 5A2204Z Restoration of Cardiac Rhythm, Single (ICD-10-PCS; 2017-04-14)
PROC: 5A1221Z Performance of Cardiac Output, Continuous (ICD-10-PCS; principal; 2017-04-15 08:15)
PROC: 30233N1 Transfusion of Nonautologous Red Blood Cells into Peripheral Vein, Percutaneous Approach (ICD-10-PCS; principal; 2017-04-15 08:15)
PROC: 02RW0JZ Replacement of Thoracic Aorta, Descending with Synthetic Substitute, Open Approach (ICD-10-PCS; principal; 2017-04-15 08:15)
PROC: 02RF08Z Replacement of Aortic Valve with Zooplastic Tissue, Open Approach (ICD-10-PCS; principal; 2017-04-15 08:15)
DX: I35.0 Nonrheumatic aortic (valve) stenosis (principal); Q23.1 Congenital insufficiency of aortic valve; I77.810 Thoracic aortic ectasia; D62 Acute posthemorrhagic anemia; I97.88 Other intraoperative complications of the circulatory system, not elsewhere classified; I47.2 Ventricular tachycardia; I49.3 Ventricular premature depolarization; M79.7 Fibromyalgia; K58.1 Irritable bowel syndrome with constipation; F32.9 Major depressive disorder, single episode, unspecified; F41.9 Anxiety disorder, unspecified; E53.8 Deficiency of other specified B group vitamins; H91.93 Unspecified hearing loss, bilateral
CPT/HCPCS: 82947-QW; 97116-GP; 97161-GP; 97165-GO; 97530-GP; 97535-GO; C1768; C1769; G0378; G8978-GP-CI; G8978-GP-CK; G8979-GP-CI; G8980-GP-CI; G8987-GO-CJ; G8988-GO-CI; G8989-GO-CI; J0153; J0171; J0282; J0461; J0690; J1265; J1644; J1815; J1885; J1940; J2001; J2150; J2250; J2260; J2310; J2370; J2405; J2704; J2720; J2765; J2930; J2997; J3010; J3490; J7060; P9016; P9041; Q9967

== ENCOUNTER → 2017-04-23 | Outpatient (CLI) | payer OTHER | LOC: FIMAGING 14:17 | PROVIDERS: ATTEND Thoracic Surgery (Cardiothoracic Vascular Surgery) | DX: J90 Pleural effusion, not elsewhere classified (principal); J98.11 Atelectasis; Z98.890 Other specified postprocedural states ==

== ENCOUNTER → 2017-04-28 | Outpatient (CLI) | payer OTHER | LOC: FIMAGING 12:19 | PROVIDERS: ATTEND Thoracic Surgery (Cardiothoracic Vascular Surgery) | DX: J90 Pleural effusion, not elsewhere classified (principal); J98.11 Atelectasis; Z86.79 Personal history of other diseases of the circulatory system; Z95.2 Presence of prosthetic heart valve ==

== ENCOUNTER → 2017-05-12 | Outpatient (CLI) | payer OTHER | LOC: FIMAGING 09:36 | PROVIDERS: ATTEND Thoracic Surgery (Cardiothoracic Vascular Surgery) | DX: J90 Pleural effusion, not elsewhere classified (principal) ==

== ENCOUNTER → 2017-05-27 | Outpatient (CLI) | payer OTHER | LOC: FIMAGING 14:59 | PROVIDERS: ATTEND Thoracic Surgery (Cardiothoracic Vascular Surgery) | DX: J90 Pleural effusion, not elsewhere classified (principal); Z95.2 Presence of prosthetic heart valve ==

== ENCOUNTER → 2017-06-17 | Outpatient (CLI) | payer OTHER | LOC: FIMAGING 14:54 | PROVIDERS: ATTEND Thoracic Surgery (Cardiothoracic Vascular Surgery) | DX: Z95.2 Presence of prosthetic heart valve (principal) ==

== ENCOUNTER → 2017-06-22 | Outpatient (CLI) | payer OTHER ==
[~2017-06-22] MED LIST changes: -ASPIRIN EC 325 MG TAB PO ONE; -DIAZEPAM 5 MG TAB ONE; -DIAZEPAM 5 MG TAB PO ONE; -FAMOTIDINE 20 MG TAB ONE; -FAMOTIDINE 20 MG TAB PO ONE; -HEPARIN 10,000 UNIT/10 ML MDV ONE; -IOPAMIDOL (ISOVUE-370) 150 ML BTL IV ONE; -MIDAZOLAM 2 MG/2 ML VIAL ONE; -NS 1,000 ML IV ONE; -VERAPAMIL 5 MG/2 ML VIAL ONE; -diphenhydrAMINE 25 MG CAP PO ONE; -fentaNYL 100 MCG/2 ML INJ ONE
== END ==
LOC: FIMAGING 12:10
PROVIDERS: ATTEND Thoracic Surgery (Cardiothoracic Vascular Surgery)
PROC: 0W993ZZ Drainage of Right Pleural Cavity, Percutaneous Approach (ICD-10-PCS; principal; 2017-06-22)
DX: J90 Pleural effusion, not elsewhere classified (principal); Z95.4 Presence of other heart-valve replacement

== ENCOUNTER → 2017-06-29 | Outpatient (CLI) | payer OTHER | LOC: FIMAGING 15:09 | PROVIDERS: ATTEND Thoracic Surgery (Cardiothoracic Vascular Surgery) | DX: Z09 Encounter for follow-up examination after completed treatment for conditions other than malignant neoplasm (principal); Z98.890 Other specified postprocedural states ==

== ENCOUNTER → 2017-10-05 | Outpatient (CLI) | payer OTHER | LOC: FIMAGING 15:44 | PROVIDERS: ATTEND Family Medicine | DX: Z12.31 Encounter for screening mammogram for malignant neoplasm of breast (principal) | CPT/HCPCS: G0202 ==

== ENCOUNTER → 2018-11-09 | Outpatient (CLI) | payer OTHER | LOC: FIMAGING 10:07 | PROVIDERS: ATTEND Family Medicine | DX: Z12.31 Encounter for screening mammogram for malignant neoplasm of breast (principal) ==

== ENCOUNTER 2018-11-13 16:14 | Emergency (ER) | payer OTHER ==
--- NOTE | 2018-11-13 17:21 | EDPHY ---
H & P Time Seen by Provider: 11/13/18 16:18 HPI/ROS: CHIEF COMPLAINT: Left wrist injury HISTORY OF PRESENT ILLNESS: Patient states she was up on a stool taking the star from the top of the [place] tree off when she fell. She fell landing on her left arm onto a carpeted floor. She had pain immediately. She denies hitting her head or other injuries. No neck pain. No numbness in hand but feels that it is difficult to move fingers secondary to pain. Left-hand dominant. Contents of 10 point review of systems otherwise negative except for what is mentioned in HPI. General Appearance: Alert, moderate distress Eyes: Pupils equal and round no pallor or injection. ENT, Mouth: Mucous membranes moist. Respiratory: There are no retractions, lungs are clear to auscultation. Cardiovascular: Regular rate and rhythm. Gastrointestinal: Abdomen is soft and nontender, no masses, bowel sounds normal. Neurological: Awake, alert, normal sensation to left upper extremity. Decreased active range of motion secondary to pain. Skin: Warm and dry, no rashes. Musculoskeletal: Neck is supple nontender. Obvious deformity at left wrist with tenderness. Significant pain with movement but grossly normal strength. Psychiatric: Patient is oriented X 3, there is no agitation. Medical/surgical history: Aortic valve replacement. Social history: Nonsmoker. Smoking Status: Never smoked Constitutional: Initial Vital Signs Temperature (C) 36.5 C 11/13/18 16:20 Heart Rate 78 11/13/18 16:20 Respiratory Rate 18 11/13/18 16:20 Blood Pressure 148/64 H 11/13/18 16:20 O2 Sat (%) 97 11/13/18 16:20 O2 Delivery Mode Room Air Allergies/Adverse Reactions: NSAIDS (Non-Steroidal Anti-Inflamma Allergy (Verified 11/13/18 16:18) Quinolones Allergy (Verified 11/13/18 16:19) Home Medications: Medication Instructions Recorded Cholecalciferol Vit D3 [Vitamin D3 1,000 units PO DAILY 04/02/17 (*)] Cyanocobalamin [Vitamin B12 (*)] 1,000 mcg PO DAILY 04/02/17 Estradiol [VAGIFEM] 10 mcg VG Q3D 04/02/17 Herbals/Supplements -Info Only 1 ea PO DAILY 04/02/17 valACYclovir [Valtrex (*)] 500 - 1,000 mg PO DAILY PRN 04/02/17 Acetaminophen [Tylenol 325mg (*)] 325 - 650 mg PO Q4HRS PRN #0 tab 04/19/17 Aspirin EC [Aspirin EC 81 mg (*)] 81 mg PO DAILY #100 tab 04/19/17 Atenolol [Tenormin 25 mg (*)] 12.5 mg PO DAILY #30 tab 04/19/17 Ferrous Sulfate [Ferrous Sulf 325 325 mg PO DAILY #14 tab 04/19/17 MG (*)] traMADol [Ultram 50 mg (*)] 50 mg PO Q6HRS PRN #40 tab 04/19/17 Hydrocodone/APAP 5/325 [[place] 1 tab PO Q6H PRN 5 Days #20 tab 11/13/18 5/325 (*)] Medical Decision Making - Diagnostics Imaging Results: Imaging Impressions Wrist X-Ray 11/13/18 16:22 Impression: 1. Comminuted intraarticular impacted distal left radius fracture, with dorsal angulation 33 degrees. 2. Questionable dorsal triquetral fracture. Wrist X-Ray 11/13/18 18:07 Impression: Distal left radius comminuted intraarticular fracture, with satisfactory alignment postreduction. Imaging: I viewed and interpreted images myself (Post reduction adequate.) ED Course/Re-evaluation: 5:15 p.m. Hematoma block performed. Infused 5 mils of 2% lidocaine and 1% bupivacaine 50 50 mix. 6:00 p.m. fracture reduction performed with C-arm. Reasonable improvement in alignment although still shortened. Post reduction films ordered. I was present during splint placement. Distal circulation, sensation, movement intact prior and after splint as confirmed by myself. Differential Diagnosis: Patient with distal radius fracture and likely triquetrum fracture after fall from stool at home today. No evidence of medical cause for her fall, head neck chest or abdominal trauma. Hematoma block with reduction performed in the emergency department with reasonable realignment although as fracture is intra- articular will likely need surgical intervention. Referred to Dr. Tse, orthopedist for definitive care. Reviewed home care including elevation, ice, [place] for pain. Discussed return precautions. Stable for discharge. - Data Points Medications Given: Discontinued Medications Hydrocodone Bitart/Acetaminophen ([place] 5/325mg Prepack#6) 1 btl TAKEHOME EDNOW ONE Stop: 11/13/18 18:28 Last Admin: 11/13/18 18:47 Dose: 1 btl Hydrocodone Bitart/Acetaminophen ([place] 5/325) 1 tab PO EDNOW ONE Stop: 11/13/18 18:28 Last Admin: 11/13/18 18:47 Dose: 1 tab Departure - Departure Disposition: Home, Routine, Self-Care Clinical Impression: Wrist fracture, left Qualifiers: Encounter type: initial encounter Fracture type: closed Qualified Code(s): S62.102A - Fracture of unspecified carpal bone, left wrist, initial encounter for closed fracture Condition: Good Instructions: Hydrocodone/Acetaminophen (By mouth), Wrist Fracture in Adults ( ED) Additional Instructions: Use ice frequently to affected area. Elevate as well. Use sling at all times when not in bed. Follow up with Dr. Tse. You will need to call to make an appointment on Thursday. They will likely see you in the office mid week next week. Return to the emergency department if he developed severe pain, numbness or discoloration in your fingers or for other concerning new symptoms. Referrals: Ifeoma Rivera MD [Primary Care Provider] - As per Instructions Prescriptions: Hydrocodone/APAP 5/325 [[place] 5/325 (*)] 1 tab PO Q6H PRN 5 Days #20 tab PRN Reason: Pain, Moderate
[2018-11-13] MEDS ORDERED: HYDROCOD/APAP 5/325 PREPACK#6 BTL TAKEHOME ONE (18:27)
[2018-11-13] MEDS ORDERED: HYDROCODONE/APAP 5/325 TAB PO ONE (18:27)
[2018-11-13 18:52] VITALS: BP 126/73
== END 2018-11-13 18:52 | disposition home or self-care (01) ==
PROC: 0PSNXZZ Reposition Left Carpal, External Approach (ICD-10-PCS; principal; 2018-11-13)
DX: S62.102A Fracture of unspecified carpal bone, left wrist, initial encounter for closed fracture (principal); W11.XXXA Fall on and from ladder, initial encounter; Y92.009 Unspecified place in unspecified non-institutional (private) residence as the place of occurrence of the external cause
CPT/HCPCS: A4565